=== PATIENT | male | born 1970 | race Two or more races ===

== ENCOUNTER 2020-07-07 21:04 | Emergency (ER) | payer SELFPAY ==
[~2020-07-07] VITALS: Ht 188 cm; Wt 90.7 kg
[2020-07-07] MEDS ORDERED: SODIUM CHLORIDE 0.9% 1,000 ML IVB ONE (21:30)
[2020-07-07] MEDS ORDERED: LORazepam 2MG/ML-1ML VIAL IV ONE (21:30)
[2020-07-07 22:03] LABS: Basophils # (auto) 0 10 ^3/uL (0-0.2); Basophils % (auto) 0.3 % (0.0-2.0); Eosinophils # (auto) 0 10 ^3/uL (0-0.8); Eosinophils % (auto) 0.5 % (0.0-7.0); Hematocrit 46.5 % (41.0-53.0); Hemoglobin 15.6 g/dL (13.5-17.5); Lymphocytes # (auto) 0.8 10 ^3/uL (0.4-5.4); Lymphocytes % (auto) 15.9 % (10.0-50.0); Mean Corpuscular Hemoglobin 32.4 pg (28.0-32.0); Mean Corpuscular Hgb Conc. 33.6 g/dL (32.0-36.0); Mean Corpuscular Volume 96.3 fL (80.0-100.0); Monocytes # (auto) 0.4 10 ^3/uL (0-1.3); Monocytes % (auto) 7.9 % (0.0-12.0); Neutrophils # (auto) 3.7 10 ^3/uL (1.6-8.6); Neutrophils % (auto) 75.4 % (37.0-80.0); Nucleated Red Blood Cells % 0.1 %; Platelet Count (auto) 140 10^3/uL (140-450); Red Blood Cells 4.83 10^6/uL (4.5-5.90); Red Cell Distribution Width 12.7 % (11.8-14.3); White Blood Cell 4.9 10^3/uL (4.4-10.8)
[2020-07-07 22:25] LABS: Alanine Aminotransferase 37 U/L (16-61); Albumin 3.7 g/dL (3.4-5.0); Anion Gap 8 (5-15); Blood Urea Nitrogen 19 mg/dL (7-18); Calcium 8.2 mg/dL (8.5-10.1); Carbon Dioxide 26 mmol/L (21-32); Chloride 102 mmol/L (98-107); Glucose 114 mg/dL (74-106); Magnesium 2.4 mg/dL (1.6-2.6); Potassium 3.2 mmol/L (3.5-5.1); Sodium 136 mmol/L (136-145)
[2020-07-07 22:28] LABS: Alkaline Phosphatase 89 U/L (45-117); Aspartate Aminotransferase 23 U/L (15-37); Bilirubin, Total 0.6 mg/dL (0.2-1.0); GFR African American 111 mL/min; GFR Non-African American 91 mL/min; Total Protein 7.8 g/dL (6.4-8.2)
[2020-07-07 22:33] LABS: Blood Alcohol < 3.0 mg/dL (0-5)
[2020-07-08] MEDS ORDERED: POTASSIUM EFFERVESENT TAB 25 MEQ PO ONE (02:30)
[2020-07-08 03:30] LABS: CRP High Sensitivity 1.65 mg/dL (< 0.3)
[2020-07-08 09:36] VITALS: BP 135/72
== END 2020-07-08 09:47 | disposition home or self-care (01) ==
LOC: EDBD 21:04 → ER 21:08
DX: U07.1 COVID-19 (principal); R56.9 Unspecified convulsions; J18.9 Pneumonia, unspecified organism
CPT/HCPCS: 36415; 36600; 70450; 71045; 80053; 80320; 82728; 82805; 83615; 83735; 85025; 85379; 86141; 93005; 96361; 96374; 99285; J2060